=== PATIENT | female | born 2005 | race Two or more races ===

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

== ENCOUNTER 2025-04-09 01:16 | Emergency (ER) | payer OTHER, BC, MEDICAID, SELFPAY ==
--- OUTSIDE RECORDS SUMMARY | 2020-04-03 19:00 | XMS_ITS | Continuity of Care Document ---
Author Organization [facility] Address [address] [facility] et [address] [place] [id number] Phone Care Team Providers Care Data Reduction Technician Name Role Phone Unavailable Unavailable Unavailable Advance Directives Directive Yes / No Effective Date File Name No Information Encounters Encounter Description Practice Location Reason(s) For Visit Diagnoses Date Provider Providers Copied on Encounter [facility] Veronica, [address], [address], tel:[phone] OZRK OBS OUTPATIENT No Information No Information Referring Provider: [place], [address]. tel:[phone] Family History Family Member Type Diagnosis Age At Onset No Information Payers Payer name Insurance type Covered green party ID Authoriza tion(s) [facility] [id number] Social History Type Description Quantity Date Captured Comments Sex Female Smoking Status No Information Chief Complaint And Reason For Visit No Information History Of Present Illness Encounter Date Complaint History Of Prese nt Illness No Information Instructions Date Instruction Additional Infor mation No Information Assessments Type Assessment Date No Information
[2025-04-09 01:19] VITALS: BP 128/84; PULSE 77; RESP 16; TEMP 36.9; O2SAT 100; BMI 33.6
--- NOTE | 2025-04-09 01:32 | ED_ITS ---
HPI - Abdominal Pain 2 General: Chief Complaint: Abdominal Pain Stated Complaint: ABD Pain Time Seen by Provider: 04/09/25 01:23 History of Present Illness: 19-year-old female presents emergency ro om with abdominal pain. Symptoms started about 430 today. She is vomited twice. Located in her epigastric/central abdominal area. She has had episodes like this before. Said she was told she had gastritis. However said the pain got so bad this time that she had to come to the emergency room. She has difficulty walking because of the pain. No dysuria. No chest pain. No fevers. Related Data Date of Last Menstrual Period: 04/09/25 Previous Rx's ?Medication ?Instructions ?Recorded omeprazole 40 mg capsule,delayed 40 mg PO DAILY 14 day s #14 caps 08/03/24 release ondansetron 8 mg disintegrating 8 mg PO Q8H PRN nausea and 08/03/24 tablet vomiting 5 days #15 tabs medroxyprogesterone 150 mg/mL 150 mg IM .q3 months bir th control 12/06/24 intramuscular suspension #1 mL (Depo-Provera) Allergies Allergy/AdvReac Type Severity Reaction Status Date / Time No Known Allergies Allergy Verified 12/06/24 12:42 Review of Systems 2 Narrative: Constitutional symptoms: Negative except as documented in HPI. Skin symptoms: Negative except as documented in HPI. Eye symptoms: Negative except as documented in HPI. ENMT symptoms: Negative except as documented in HPI. Respiratory symptoms: Negative except as documented in HPI. Cardiovascular symptoms: Negative except as documented in HPI. Gastrointestinal symptoms: Negative except as documented in HPI. Genitourinary symptoms: Negative except as documented in HPI. Musculoskeletal symptoms: Negative except as documented in HPI. Neurologic symptoms: Negative except as documented in HPI. Psychiatric symptoms: Negative except as documented in HPI. Endocrine symptoms: Negative except as documented in HPI. PFSH ED 2 PFSH: Social History Smoking and tobacco/nicotine status: never used tobacco/nicotine Female Reproductive History: Date of last menstrual period: 04/09/25 Physical Exam 2 Narrative: EXAM NARRATIVE: General: Alert, no acute distress. Skin: Warm, dry. Head: Normocephalic, atraumatic. Neck: Supple, trachea midline. Eye: Extraocular movements are intact. Ears, nose, mouth and throat: mucosa moist. Cardiovascular: Regular, Normal peripheral perfusion. Respiratory: Lungs are clear to auscultation, respirations are non-labored, breath sounds are equal, Symmetrical chest wall expansion. Gastrointestinal: Soft, central abdominal tenderness/epigastric, Non distended Musculoskeletal: Normal ROM, no deformity. Neurological: Alert and oriented, No focal neurological deficit observed. Psychiatric: Cooperative, appropriate mood & affect. Course 2 Vital Signs: Vital signs: Vital Signs Temperature 98.4 F 04/09/25 01:19 Pulse Rate 74 04/09/25 01:36 Respiratory Rate 16 04/09/25 01:19 Blood Pressure 124/86 04/09/25 01:36 Pulse Oximetry 99 04/09/25 01:36 Oxygen Delivery Me thod Room Air 04/09/25 01:36 MDM - Abdominal Pain Medical Decision Making Medical decision making: Differential diagnosis including but not limited to and based on the above HPI, review of systems and physical exam: In this patient with epigastric pain differential would include cholelithiasis or cholecystitis. Hepatitis. Diverticulitis. Constipation. UTI. colitis. small bowel obstruction. crohn's flare. pancreatitis. gastritis. peptic ulcer. also concern for acute cardiac event. Orders placed to evaluate differential diagnosis based on the above differential, HPI and physical exam Lab Review: Laboratory results were reviewed and interpreted by myself the emergency room physician. No leukocytosis. No anemia. No renal failure. CRP is mildly elevated. CT of the abdomen pelvis with contrast: No acute process. This was reviewed and interpreted by myself the emergency room physician. I also reviewed the radiology report. I reviewed the patient's medical record. Reexamination: Patient remained stable. No increased work of breathing. No altered mental status. No focal motor deficits. Assessment and plan: Abdominal pain ?Toradol in the emergency room. - Discharged home - Discussed plan with patient. Answered any questions. - Evaluation and treatment of this problem were appropriate in the emergency setting. Lab Data 04/09/25 01:46 04/09/25 01:46 Labs/Radiology: Radiology Impressions Abdomen/Pelvis CT 04/09/25 02:05 IMPRESSION: No acute abnormality of the abdomen/pelvis. Laboratory Results WBC 6.64 10^3/uL (4.5-13.0) 04/09/25 01:46 RBC 4.95 10^6/uL (3.85-5.65) 04/09/25 01:46 Hgb 13.60 g/dL (12.4-14.8) 04/09/25 01:46 Hct 41.5 % (36-47) 04/09/25 01:46 MCV 83.8 fl (85-98) L 04/09/25 01:46 MCH 27.5 pg (27-33) 04/09/25 01:46 MCHC 32.8 g/dL (30-55) 04/09/25 01:46 RDW 13.2 % (12.1-15.1) 04/09/25 01:46 Plt Count 226 10^3/cmm (157-399) 04/09/25 01:46 MPV 11.0 fL (7.4-10.4) H 04/09/25 01:46 Neut % (Auto) 53.1 % 04/09/25 01:46 Lymph % (Auto) 35.7 % 04/09/25 01:46 [place] % (Auto) 8.9 % 04/09/25 01:46 Eos % (Auto) 1.2 % 04/09/25 01:46 Baso % (Auto) 0.8 % 04/09/25 01:46 Neut # (Auto) 3.53 10^3/uL (1.8-8.0) 04/09/25 01:46 Lymph # (Auto) 2.4 10^3/uL (1.5-6.5) 04/09/25 01:46 [place] # (Auto) 0.6 10^3/uL (0.2-0.9) 04/09/25 01:46 Eos # (Auto) 0.1 10^3/uL (0.0-0.8) 04/09/25 01:46 Baso # (Auto) 0.1 10^3/uL (0.0-0.1) 04/09/25 01:46 Nucleated RBC % (auto) 0 % 04/09/25 01:46 Nucleated RBCs # 0.0 /100WBC 04/09/25 01:46 Sodium 138 mmol/L (136-145) 04/09/25 01:46 Potassium 4.3 mmol/L (3.5-5.1) 04/09/25 01:46 Chloride 105 mmol/L (98-107) 04/09/25 01:46 Carbon Dioxide 21 mmol/L (22-29) L 04/09/25 01:46 Anion Gap 16.3 (5-19) 04/09/25 01:46 BUN 11 mg/dL (6-20) 04/09/25 01:46 Creatinine 0.7 mg/dL (0.5-0.9) 04/09/25 01:46 GFR Calculation 107.8 mL/min (90-130) 04/09/25 01:46 Glucose 97 mg/dL (65-115) 04/09/25 01:46 Calculated Osmolality 285 mOsm/kg (285-295) 04/09/25 01:46 Lactic Acid 1.0 mmol/L (0.5-2.2) 04/09/25 01:46 Calcium 9.4 mg/dL (8.5-10.5) 04/09/25 01:46 Total Bilirubin 0.2 mg/dL (0.15-1.2) 04/09/25 01:46 AST 18 U/L (0-32) 04/09/25 01:46 ALT 23 U/L (0-33) 04/09/25 01:46 Alkaline Phosphatase 64 U/L (35-105) 04/09/25 01:46 C-Reactive Protein 6.2 mg/L (0.0-4.9) H 04/09/25 01:46 Total Protein 7.5 g/dL (6.6-8.7) 04/09/25 01:46 Albumin 4.2 g/dL (3.5-5.2) 04/09/25 01:46 Globulin 3.3 g/dL (1.3-4.6) 04/09/25 01:46 Lipase 53 U/L (13-60) 04/09/25 01:46 HCG, Qual Negative (Negative) 04/09/25 01:33 Urine Color Yellow (Yellow) 04/09/25 01:33 Urine Appearance Clear (CLEAR) 04/09/25 01:33 Urine pH 5.5 (5-7) 04/09/25 01:33 Ur Specific [place] 1.036 (1.005-1.030) H 04/09/25 01:33 Urine Protein Negative (Negative) 04/09/25 01:33 Urine Glucose (UA) Negative (Normal) 04/09/25 01:33 Urine Ketones Trace (Negative) 04/09/25 01:33 Urine Blood 1+ (Negative) A 04/09/25 01:33 Urine Nitrate Negative (Negative) 04/09/25 01:33 Urine Bilirubin Negative (Negative) 04/09/25 01:33 Urine Urobilinogen 1.0 mg/dL (Negative) 04/09/25 01:33 Ur Leukocyte Esterase Negative (Negative) 04/09/25 01:33 Urine RBC 3-5 /hpf (0-2) 04/09/25 01:33 Urine WBC 0-5 /hpf (0-5) 04/09/25 01:33 Ur Squamous Epith Cells 0-5 /hpf (0-5) 04/09/25 01:33 Amorphous Sediment Not Reportable 04/09/25 01:33 Urine Bacteria None seen /hpf (NONE) 04/09/25 01:33 Hyaline Casts 2.87 /lpf 04/09/25 01:33 All radiology interpretation(s) finalized by discharge Discharge Plan Discharge Patient Disposition: Home Clinical Impression: Abdominal pain Condition: Stable Prescriptions: No Action medroxyprogesterone [Depo-Provera] 150 mg/mL suspension 150 mg IM .q3 months Qty: 1 3RF ondansetron 8 mg tablet,disintegrating 8 mg PO Q8H PRN (Reason: nausea and vomiting) 5 Days Qty: 15 0RF omeprazole 40 mg capsule,delayed release(DR/EC) 40 mg PO DAILY 14 Days Qty: 14 0RF Discharge Orders: Discharge ED (Routine); Ordered 04/09/25 Ordered By: Kimberlee Lopez Referrals: Franko Cheng DO [Primary Care Provider, Family Practice] Discharge Diet: Advance as tolerated Discharge Activity: Increase activity as tolerated Patient Instructions: Abdominal Pain (ED), Opioid Safety, Pain Management, Patient Portal & Bogdan Instructions Activity Restrictions/Additional Instructions: Thank you for choosing [facility] for your healthcare needs today. You have been screened and evaluated and felt safe for discharge. Health conditions do change or evolve sometimes and as such it is important that you follow up with your Primary Doctor to be re checked, 3-5 days is a general good time frame for follow up. You are always welcome to return to the ED for re assessment if your symptoms are worsening or you have new concerns Print Language: Salvadorean Coding Level of Care Code ED Electrical Design Engineer for Bebeto Alvarado
[2025-04-09 01:36] VITALS: BP 124/86; PULSE 74; O2SAT 99
[2025-04-09 01:51] LABS: Glucose Urine UA Negative (Normal); Nitrate Urine Negative (Negative)
[2025-04-09 01:51] LABS: Hematocrit 41.5 % (36-47); Hemoglobin 13.60 g/dL (12.4-14.8); Mean Corpuscular HGB Conc 32.8 g/dL (30-55); Mean Corpuscular Hemoglobin 27.5 pg (27-33); Mean Corpuscular Volume 83.8 fl (85-98); Nucleated Red Blood Cells % 0 %; Platelet Count 226 10^3/cmm (157-399); Red Blood Count 4.95 10^6/uL (3.85-5.65); White Blood Count 6.64 10^3/uL (4.5-13.0)
[2025-04-09 02:00] LABS: HCG Qualitative Urine. Negative (Negative)
[2025-04-09 02:03] LABS: Specific Gravity, Urine 1.036 (1.005-1.030)
--- NOTE | 2025-04-09 02:05 | CTR_ITS ---
PROCEDURE INFORMATION: Exam: CT Abdomen And Pelvis With Contrast Exam date and time: 04/09/2025 3:00 AM Age: 19 years old Clinical indication: Abdominal pain; Generalized TECHNIQUE: Imaging protocol: Computed tomography of the abdomen and pelvis with contrast. Sagittal and coronal reformatted images were also reviewed. Radiation optimization: All CT scans at this facility use at least one of these dose optimization techniques: automated exposure control; mA and/or kV adjustment per patient size (includes targeted exams where dose is matched to clinical indication); or iterative reconstruction. Contrast material: OMNI 350; Contrast volume: 100 ml; Contrast route: INTRAVENOUS (IV); COMPARISON: CT abdomen pelvis w con* [id number] 01/22/2023 10:01 AM RADIATION DOSE METRICS: Total DLP (mGy-cm): 841.85 FINDINGS: Lungs: Visualized lungs are clear. Pleural spaces: No pleural effusion. Heart: Visualized portions of the heart are unremarkable. Liver: The liver is unremarkable. Gallbladder and biliary ducts: The gallbladder is unremarkable. No biliary ductal dilatation. Pancreas: The pancreas is unremarkable. No pancreatic ductal dilatation. Spleen: The spleen is unremarkable. Adrenal glands: The right and left adrenal glands are unremarkable. Kidneys and ureters: The right and left kidneys are unremarkable. The right and left ureters are unremarkable. Stomach and bowel: No obstruction. No mucosal thickening. Appendix: The appendix is visualized and is unremarkable. No findings to suggest acute appendicitis. Intraperitoneal space: No free intraperitoneal air. No ascites. No loculated fluid collections to suggest an abscess. Vasculature: No evidence for aortic aneurysm or aortic dissection. Hepatic veins, portal veins, splenic vein, and SMV are patent. Lymph nodes: No lymphadenopathy. Urinary bladder: Unremarkable as visualized. Reproductive: The uterus, right ovary, and left ovary are unremarkable. Bones/joints: No acute fracture. Soft tissues: The extra-abdominal soft tissues are unremarkable. CT/CT abdomen pelvis w con* [id number] IMPRESSION: No acute abnormality of the abdomen/pelvis.
[2025-04-09 02:11] LABS: Alanine Aminotransferase 23 U/L (0-33); Albumin Level 4.2 g/dL (3.5-5.2); Alkaline Phosphatase 64 U/L (35-105); Anion Gap 16.3 (5-19); Aspartate Amino Transferase 18 U/L (0-32); Blood Urea Nitrogen 11 mg/dL (6-20); Calcium 9.4 mg/dL (8.5-10.5); Carbon Dioxide 21 mmol/L (22-29); Chloride 105 mmol/L (98-107); Creatinine Clr Calc Pharmacy 144.5826; Globulin 3.3 g/dL (1.3-4.6); Glucose 97 mg/dL (65-115); Lipase 53 U/L (13-60); Osmolality Calculated 285 mOsm/kg (285-295); Potassium 4.3 mmol/L (3.5-5.1); Sodium 138 mmol/L (136-145); Total Protein 7.5 g/dL (6.6-8.7)
[2025-04-09 02:12] LABS: Lactic Sepsis W/Reflex 1.0 mmol/L (0.5-2.2)
[2025-04-09] MEDS: iohexol 350 mg/mL 500 mL Btl (per mL) IV (03:04)
== END 2025-04-09 04:36 | disposition home or self-care (01) ==
PROVIDERS: Emergency Provider Emergency Medicine; PCP Family Medicine
DX: R10.9 Unspecified abdominal pain (principal)
CPT/HCPCS: 36415; 74177; 80053; 81001; 81025; 83605; 83690; 85025; 86140; 96374; 99285; J1885

== ENCOUNTER 2025-04-24 09:50 | Outpatient (CLI) | payer OTHER, BC, MEDICAID, SELFPAY ==
--- NOTE | 2025-04-24 10:00 | NM_ITS ---
WS: [id number] NUCLEAR MEDICINE HIDA SCAN WITH GALLBLADDER EJECTION FRACTION HISTORY: R10.13 - Epigastric pain COMPARISON: CT 04/09/2025 TECHNIQUE: The patient was intravenously injected with 7.4 mCi of TC99m Mebrofenin. Immediate imaging over the right upper quadrant was followed by 5 minute image and additional images for a total of 60 minutes. Normal uptake of radiotracer throughout the liver. Activity identified in the gallbladder at 10 minutes and well distended by 60 minutes. Activity in the proximal small bowel was seen by 30 minutes. Good washout of the radiotracer from the liver by 60 minutes. The patient then drank 8 ounces of Ensure Plus. Ejection fraction at 60 minutes was 95%. Normal GB ejection fraction is 35-75%. Post fatty meal symptoms: None. NM/NM hepatobiliary w phar* [id number] IMPRESSION: 1. Normal HIDA scan. 2. Normal gallbladder ejection fraction.
== END 2025-04-24 09:51 | disposition home or self-care (01) ==
LOC: RAD 09:52
PROVIDERS: PCP Family Medicine; Visit Provider Family Medicine
DX: R10.13 Epigastric pain (principal)
CPT/HCPCS: 78227; A9537

== ENCOUNTER → 2025-05-24 08:58 | Outpatient (BNVA) | payer OTHER, BC, MEDICAID, SELFPAY | PROVIDERS: PCP Family Medicine; Visit Provider Family Medicine | DX: R10.13 Epigastric pain (principal) | CPT/HCPCS: 82785; 86001; 86003 ==